=== PATIENT | female | born 1935 | race Caucasian/White ===

== ENCOUNTER → 2016-10-08 | Outpatient (CLI) | payer MEDICARE, BC ==
--- NOTE | 2016-10-09 13:40 | MR ---
EXAMINATION TYPE: MR brain and iac wo/w con DATE OF EXAM: 10/08/2016 COMPARISON: NONE HISTORY: rt trigeminal neuralgia, carla hearing loss, Pt has hx of 3 gamma knife procedures on prior tr igeminal neuralgia TECHNIQUE: Multiplanar, multisequence images of the brain and brainstem is performed without and with IV contras t, utilizing 9 mL intravenous MultiHance . FINDINGS: Diffusion weighted images demonstrate no evidence of a recent infarct or other diffusion ab normality. There is no extra-axial fluid collection. Periventricular white matter shows confluent h yperintensity on inversion recovery and T2-weighted sequences, there are scattered foci present addit ionally. Focal encephalomalacia present in the periventricular white matter on the left compatible wi th prior infarct. The ventricular system and cisternal spaces are normal in size and appearance. The brain volume is remarkable for cortical atrophy. Midline structures demonstrate normal morphology. The craniocervical junction appears within normal limits. Post contrast images demonstrate mild asymmetry, some increased enhancement along the region anterior to the internal carotid artery on the right as compared to the left on image #9 of the axia l postcontrast data set. Dural venous sinuses appear patent. The visualized sinuses are clear and the globes are intact. IMPRESSION: Mild asymmetry on postcontrast appearance as described, comparison with old films may be of benefit, this may represent a normal variant, correlate for appropriate history.
== END | disposition home or self-care (01) ==
LOC: RADMRIMAIN 07:57
PROVIDERS: ATTEND Neurological Surgery
DX: G50.0 Trigeminal neuralgia (principal)
CPT/HCPCS: 70553

== ENCOUNTER → 2017-10-21 | Outpatient (CLI) | payer MEDICARE, BC ==
[~2017-10-21] MED LIST: DENOSUMAB 60 MG/ML 1 ML SYRINGE SQ ONE
[2017-10-21 10:07] VITALS: BP 127/59; PULSE 75; RESP 14
== END | disposition home or self-care (01) ==
LOC: PROCWHC3 09:54
PROVIDERS: ATTEND Family Medicine
DX: M81.0 Age-related osteoporosis without current pathological fracture (principal)
CPT/HCPCS: 96372; J0897

== ENCOUNTER → 2018-05-01 | Outpatient (CLI) | payer MEDICARE, BC ==
[2018-05-01 10:16] VITALS: BP 152/69; PULSE 84; RESP 16; TEMP 97.6
== END | disposition home or self-care (01) ==
LOC: PROCWHC3 09:54
PROVIDERS: ATTEND Family Medicine
DX: M81.0 Age-related osteoporosis without current pathological fracture (principal)
CPT/HCPCS: 96372; J0897

== ENCOUNTER → 2018-10-30 | Outpatient (CLI) | payer MEDICARE, BC ==
[2018-10-30 10:20] VITALS: BP 137/65; PULSE 89; RESP 16; TEMP 97.5
== END | disposition home or self-care (01) ==
LOC: PROCWHC3 10:01
PROVIDERS: ATTEND Family Medicine
DX: M81.0 Age-related osteoporosis without current pathological fracture (principal)
CPT/HCPCS: 96372; J0897

== ENCOUNTER → 2019-05-06 | Outpatient (CLI) | payer MEDICARE, BC ==
[~2019-05-06] MED LIST changes: +DENOSUMAB 60 MG/ML 1 ML SYRINGE SQ NR; -DENOSUMAB 60 MG/ML 1 ML SYRINGE SQ ONE
[2019-05-06 10:59] VITALS: BP 138/72; PULSE 83; RESP 18; TEMP 97.8
== END | disposition home or self-care (01) ==
LOC: PROCWHC3 10:34
PROVIDERS: ATTEND Family Medicine
DX: M81.0 Age-related osteoporosis without current pathological fracture (principal)
CPT/HCPCS: 96372

== ENCOUNTER → 2020-01-04 | Outpatient (CLI) | payer MEDICARE, BC ==
[2020-01-04 13:56] VITALS: BP 150/85; PULSE 97; RESP 16; TEMP 97.5
== END | disposition home or self-care (01) ==
LOC: PROCWHC3 13:38
PROVIDERS: ATTEND Family Medicine
DX: M81.0 Age-related osteoporosis without current pathological fracture (principal)
CPT/HCPCS: 96372; J0897

== ENCOUNTER → 2020-08-08 | Outpatient (CLI) | payer MEDICARE, BC ==
[2020-08-08 11:31] VITALS: BP 177/79; PULSE 80; RESP 16; TEMP 98
== END | disposition home or self-care (01) ==
LOC: PROCWHC3 11:10
PROVIDERS: ATTEND Family Medicine
DX: M81.0 Age-related osteoporosis without current pathological fracture (principal)
CPT/HCPCS: 96372; J0897

== ENCOUNTER → 2021-01-30 | Outpatient (CLI) | payer MEDICARE, BC ==
[2021-01-30 12:13] VITALS: BP 180/84; PULSE 89; RESP 16; TEMP 97.7
== END | disposition home or self-care (01) ==
LOC: PROCWHC3 11:39
PROVIDERS: ATTEND Family Medicine
DX: M81.0 Age-related osteoporosis without current pathological fracture (principal)
CPT/HCPCS: 96372; J0897

== ENCOUNTER → 2021-08-01 | Outpatient (CLI) | payer MEDICARE, BC ==
[2021-08-01 12:50] VITALS: BP 167/84; PULSE 82; RESP 16; TEMP 98.5
== END | disposition home or self-care (01) ==
LOC: PROCWHC3 12:38
PROVIDERS: ATTEND Family Medicine
DX: M81.0 Age-related osteoporosis without current pathological fracture (principal)
CPT/HCPCS: 96372; J0897

== ENCOUNTER 2022-07-30 21:40 | Inpatient (IN) | payer MEDICARE, BC ==
[2022-07-31 00:58] LABS: Basophils % (A) 1 %; Eosinophils # (A) 0.2 k/uL (0-0.7); Eosinophils % (A) 2 %; HCT 40.4 % (34.0-46.0); Lymphocytes % (A) 13 %; MCH 31.9 pg (25.0-35.0); MCHC 32.3 g/dL (31.0-37.0); MCV 98.6 fL (80.0-100.0); Mean Platelet Volume 7.5; Monocytes # (A) 0.6 k/uL (0-1.0); Monocytes % (A) 8 %; Neutrophils # (A) 5.9 k/uL (1.3-7.7); Neutrophils % (A) 74 %; Platelet Count 463 k/uL (150-450); RBC 4.09 m/uL (3.80-5.40); RDW 13.1 % (11.5-15.5); WBC 7.9 k/uL (3.8-10.6)
[2022-07-31 01:07] LABS: Albumin 3.7 g/dL (3.5-5.0); Calcium 8.8 mg/dL (8.4-10.2); Potassium 4.3 mmol/L (3.5-5.1); Total Bilirubin 0.4 mg/dL (0.2-1.3); Total Protein 6.8 g/dL (6.3-8.2)
[2022-07-31 01:13] LABS: INR 0.9 (<1.2); Prothrombin Time 9.6 sec (9.0-12.0)
--- NOTE | 2022-07-31 02:34 | CT ---
EXAM: CT Head Without Intravenous Contrast CLINICAL HISTORY: ITS.REASON CT Reason: weakness TECHNIQUE: Axial computed tomography images of the head/brain without intravenous contrast. CTDI is 49.2 mGy and DLP is 1110.4 mGy-cm. This CT exam was performed using one or more of the following dose reduction techniques: automated exposure control, adjustment of the mA and/or kV according to patient size, and/or use of iterative reconstruction technique. COMPARISON: Represent with the prior MRI dated 10/08/2016 FINDINGS: Brain: Moderate ischemic microangiopathy. Chronic left basal ganglia lacunar infarct. Mild cerebral volume loss. No hemorrhage. Ventricles: Unremarkable. No ventriculomegaly. Bones/joints: Postoperative changes occipital craniotomy. No acute fracture. Soft tissues: Unremarkable. Sinuses: Unremarkable as visualized. No acute sinusitis. Mastoid air cells: Unremarkable as visualized. No mastoid effusion. IMPRESSION: No acute findings in the head/brain.
[2022-07-31] MEDS ORDERED: ASPIRIN 325 MG TAB PO STA (03:30)
--- NOTE | 2022-07-31 03:45 | ED ---
General Adult HPI - General Chief complaint: Weakness Stated complaint: Possible Stroke Time Seen by Provider: 07/31/22 01:31 Source: patient, family, RN notes reviewed, old records reviewed Mode of arrival: wheelchair Limitations: no limitations - History of Present Illness Initial comments: 87-year-old female presents for evaluation of weakness, fatigue. She's daughter also had noticed some mild slurred speech although patient does have a certain a mount of slurred speech at baseline. Patient denies any limb weakness or numbness. No headache. No chest pain or abdominal pain. No fever. Symptoms began at approximately 8 PM and are improved at the time my evaluation. - Related Data Home Medications Medication Instructions Recorded Confirmed Acetaminophen Tab [Tylenol Tab] 1,000 mg PO BID 10/21/17 04/30/22 Aspirin [Adult Low Dose Aspirin EC] 81 mg PO DAILY 10/21/17 04/30/22 Dicyclomine [Bentyl] 20 mg PO QID 10/21/17 04/30/22 Ergocalciferol (Vitamin D2) 50,000 units PO WEEKLY 10/21/17 04/30/22 [Vitamin D2] Levothyroxine Sodium [Tirosint] 50 mcg PO DAILY 10/21/17 04/30/22 Simvastatin [Zocor] 20 mg PO HS 10/21/17 04/30/22 buPROPion [Wellbutrin] 100 mg PO DAILY 10/21/17 04/30/22 clonazePAM [Clonazepam] 0.5 mg PO HS 10/21/17 04/30/22 Omeprazole 20 mg PO DAILY 10/30/18 04/30/22 Gabapentin 300 mg PO TID 08/01/21 04/30/22 Allergies Allergy/AdvReac Type Severity Reaction Status Date / Time oxcarbazepine Allergy Nausea & Verified 04/30/22 11:19 Vomiting Review of Systems ROS Statement: Those systems with pertinent positive or pertinent negative responses have been documented in the HPI. ROS Other: All systems not noted in ROS Statement are negative. Past Medical History Past Medical History: Cancer, COPD, CVA/TIA, GERD/Reflux, Hyperlipidemia, Osteoarthritis (OA), Skin Disorder, Thyroid Disorder Additional Past Medical History / Comment(s): SKIN CANCER IN EXTREMITIES. 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 IBS.OSTEOPOROSIS. History of Any Multi-Drug Resistant Organisms: None Reported Past Surgical History: Hernia Repair Additional Past Surgical History / Comment(s): nerve blockage in brain for cheek pain, carla carpel tunnel surgery. BILATERAL NEURALGIA NERVE BLOCK. Past Anesthesia/Blood Transfusion Reactions: No Reported Reaction Past Psychological History: No Psychological Hx Reported Smoking Status: Current every day smoker Past Alcohol Use History: None Reported Past Drug Use History: None Reported General Exam Limitations: no limitations General appearance: alert, in no apparent distress Head exam: Present: atraumatic, normocephalic Eye exam: Present: normal appearance, PERRL Neck exam: Present: normal inspection. Absent: tenderness, meningismus Respiratory exam: Present: normal lung sounds bilaterally. Absent: respiratory distress, wheezes Cardiovascular Exam: Present: regular rate, normal rhythm GI/Abdominal exam: Present: soft. Absent: distended, tenderness, guarding Extremities exam: Present: normal inspection, normal capillary refill Neurological exam: Present: alert, oriented X3, CN II-XII intact, motor sensory deficit (No focal neurological findings, NIH is 0) Psychiatric exam: Present: normal affect, normal mood Skin exam: Present: warm, dry, intact Course Vital Signs 07/30/22 07/31/22 07/31/22 21:44 01:33 03:00 Temperature 97.3 F L Pulse Rate 89 78 83 Respiratory 16 18 16 Rate Blood Pressure 173/73 189/103 173/82 O2 Sat by Pulse 95 97 95 Oximetry Medical Decision Making - Medical Decision Making Was pt. sent in by a medical professional or institution (, PA, VENDING MACHINE MECHANIC, urgent care, hospital, or residential...) When possible be specific @ -No Did you speak to anyone other than the patient for history (EMS, parent, family, police, friend...)? What history was obtained from this source @ -[Patient's daughter who is at bedside, reports recent admission for CVA. Patient on aspirin, Plavix, statin Did you review nursing and triage notes (agree or disagree)? Why? @ -I reviewed and agree with nursing and triage notes Were old charts reviewed (outside hosp., previous admission, EMS record, old EKG, old radiological studies, urgent care reports/EKG's, residential records)? Report findings @ -No old charts were reviewed Differential Diagnosis (chest pain, altered mental status, abdominal pain women, abdominal pain men, vaginal bleeding, weakness, fever, dyspnea, syncope, headache, dizziness, GI bleed, back pain, seizure, CVA, palpatations, mental health, musculoskeletal)? @ Differential Weakness: Hypoglycemia, shock, sepsis, hyponatremia, anemia, infection, AL, ETOH, adverse medicine reaction, overdose, stroke, this is not meant to be an all-inclusive list. EKG interpreted by me (3pts min.). @Sinus rhythm rate of 72, MI interval 153, QRS duration 86, no ST segment elevation. X-rays interpreted by me (1pt min.). @Showing hyperinflation without pneumothorax, no focal pneumonia CT interpreted by me (1pt min.). @Negative for intracranial hemorrhage or mass effect, no acute findings U/S interpreted by me (1pt. min.). @ -None done What testing was considered but not performed or refused? (CT, X-rays, U/S, labs)? Why? @ -None What meds were considered but not given or refused? Why? @ -None Did you discuss the management of the patient with other professionals (adiel hurd i.e. , PA, VENDING MACHINE MECHANIC, lab, RT, psych nurse, transition social worker, teaching pastor, teacher, medical officer, correctional case manager)? Give summary @ -EMH Was smoking cessation discussed for >3mins.? @ -No Was critical care preformed (if so, how long)? @ -No Were there social determinants of health that impacted care today? How? (Homelessness, low income, unemployed, alcoholism, drug addiction, transportat ion, low edu. Level, literacy, decrease access to med. care, correction, rehab)? @ -No Was there de-escalation of care discussed even if they declined (Discuss DNR or withdrawal of care, Hospice)? DNR status @ -No What co-morbidities impacted this encounter? (DM, HTN, Smoking, COPD, CAD, Cancer, CVA, ARF, Chemo, Hep., AIDS, mental health diagnosis, sleep apnea, morbid obesity)? @Hypertension, CVA Was patient admitted / discharged? Hospital course, mention meds given and route, prescriptions, significant lab abnormalities, going to OR and other pertinent info. @87-year-old female with weakness, fatigue, and mild dysarthria which is improved. Head CT is negative. Patient is currently under management for previous CVA with aspirin, Plavix, statin. Her laboratory testing is unremarkable, urinalysis is pending. There is a possibility of TIA and patient will be admitted for MRI. Patient and daughter are agreeable. Undiagnosed new problem with uncertain prognosis? @ -No Drug Therapy requiring intensive monitoring for toxicity (Heparin, Nitro, Insulin, Cardizem)? @ -No Were any procedures done? @ -No Diagnosis/symptom? @Weakness, TIA Acute, or Chronic, or Acute on Chronic? @Acute Uncomplicated (without systemic symptoms) or Complicated (systemic symptoms)? @Complicated Side effects of treatment? @ -No Exacerbation, Progression, or Severe Exacerbation? @ -No Poses a threat to life or bodily function? How? (Chest pain, USA, AL, pneumonia, PE, COPD, DKA, ARF, appy, cholecystitis, CVA, Diverticulitis, Homicidal, Suicidal, threat to staff... and all critical care pts) @Yes, CVA - Lab Data Result diagrams: 07/31/22 00:44 07/31/22 00:44 Lab Results 07/31/22 07/31/22 07/31/22 Range/Units 00:44 00:44 00:44 WBC 7.9 (3.8-10.6) k/uL RBC 4.09 (3.80-5.40) m/uL Hgb 13.0 (11.4-16.0) gm/dL Hct 40.4 (34.0-46.0) % MCV 98.6 (80.0-100.0) fL MCH 31.9 (25.0-35.0) pg MCHC 32.3 (31.0-37.0) g/dL RDW 13.1 (11.5-15.5) % Plt Count 463 H (150-450) k/uL MPV 7.5 Neutrophils % 74 % Lymphocytes % 13 % Monocytes % 8 % Eosinophils % 2 % Basophils % 1 % Neutrophils # 5.9 (1.3-7.7) k/uL Lymphocytes # 1.0 (1.0-4.8) k/uL Monocytes # 0.6 (0-1.0) k/uL Eosinophils # 0.2 (0-0.7) k/uL Basophils # 0.0 (0-0.2) k/uL PT 9.6 (9.0-12.0) sec INR 0.9 (<1.2) APTT 29.0 (22.0-30.0) sec Sodium 134 L (137-145) mmol/L Potassium 4.3 (3.5-5.1) mmol/L Chloride 97 L (98-107) mmol/L Carbon Dioxide 27 (22-30) mmol/L Anion Gap 10 mmol/L BUN 19 H (7-17) mg/dL Creatinine 1.14 H (0.52-1.04) mg/dL Est GFR (CKD-EPI)AfAm 51 (>60 ml/min/1.73 sqM) Est GFR (CKD-EPI)NonAf 44 (>60 ml/min/1.73 sqM) Glucose 87 (74-99) mg/dL Calcium 8.8 (8.4-10.2) mg/dL Total Bilirubin 0.4 (0.2-1.3) mg/dL AST 23 (14-36) U/L ALT 17 (4-34) U/L Alkaline Phosphatase 102 (38-126) U/L Troponin I (0.000-0.034) ng/mL Total Protein 6.8 (6.3-8.2) g/dL Albumin 3.7 (3.5-5.0) g/dL 07/31/22 Range/Units 00:44 WBC (3.8-10.6) k/uL RBC (3.80-5.40) m/uL Hgb (11.4-16.0) gm/dL Hct (34.0-46.0) % MCV (80.0-100.0) fL MCH (25.0-35.0) pg MCHC (31.0-37.0) g/dL RDW (11.5-15.5) % Plt Count (150-450) k/uL MPV Neutrophils % % Lymphocytes % % Monocytes % % Eosinophils % % Basophils % % Neutrophils # (1.3-7.7) k/uL Lymphocytes # (1.0-4.8) k/uL Monocytes # (0-1.0) k/uL Eosinophils # (0-0.7) k/uL Basophils # (0-0.2) k/uL PT (9.0-12.0) sec INR (<1.2) APTT (22.0-30.0) sec Sodium (137-145) mmol/L Potassium (3.5-5.1) mmol/L Chloride (98-107) mmol/L Carbon Dioxide (22-30) mmol/L Anion Gap mmol/L BUN (7-17) mg/dL Creatinine (0.52-1.04) mg/dL Est GFR (CKD-EPI)AfAm (>60 ml/min/1.73 sqM) Est GFR (CKD-EPI)NonAf (>60 ml/min/1.73 sqM) Glucose (74-99) mg/dL Calcium (8.4-10.2) mg/dL Total Bilirubin (0.2-1.3) mg/dL AST (14-36) U/L ALT (4-34) U/L Alkaline Phosphatase (38-126) U/L Troponin I <0.012 (0.000-0.034) ng/mL Total Protein (6.3-8.2) g/dL Albumin (3.5-5.0) g/dL Disposition Clinical Impression: TIA (transient ischemic attack), Weakness Disposition: ADMITTED IP TO THIS HOSP Condition: Stable Is patient prescribed a controlled substance at d/c from ED?: No Referrals: Alyssa Farrell MD [Primary Care Provider] - 1-2 days Time of Disposition: 04:26
[2022-07-31] MEDS: SODIUM CHLORIDE 0.9% 1,000 ML IV SCH ×2 (03:49→21:48)
--- NOTE | 2022-07-31 05:59 | XR ---
EXAM: XR Chest, 2 Views CLINICAL HISTORY: Weakness TECHNIQUE: Frontal and lateral views of the chest. COMPARISON: No relevant prior studies available. FINDINGS: Patient's bra was not removed, which limits evaluation. Lungs: Lingular atelectasis and/or infiltrates. Hyperexpansion of both lungs with flattening of the diaphragm bilaterally suggesting COPD. Pleural space: Trace bilateral pleural effusions likely present. No pneumothorax. Heart: Unremarkable. No cardiomegaly. Mediastinum: Unremarkable. Bones/joints: Osteopenia noted. IMPRESSION: 1. Lingular atelectasis and/or infiltrates. 2. Findings suggestive of COPD. 3. Trace bilateral pleural effusions likely present.
[2022-07-31] MEDS: ASPIRIN 81 MG PO SCH (09:20)
[2022-07-31] MEDS ORDERED: ACETAMINOPHEN TAB 500 MG TAB PO PRN (09:42)
[2022-07-31] MEDS: LEVOTHYROXINE 50 MCG TAB PO SCH (10:16)
--- NOTE | 2022-07-31 13:47 | P.CNNES ---
History of Present Illness Consult date: 07/11/22 Requesting physician: Sandro Hoskins Reason for Consult: TIA History of Present Illness: This is an 87-year-old woman with history of recent small stroke in beginning June 2022, also a remote stroke, trigeminal neuralgia status post 3 surgeries who presented emergency department because worsening of slurred speech and generalized weakness. Patient is accompanied with her daughter who helps with some of the history. According to the patient yesterday early in the afternoon yesterday she felt which was mopping the floor she was having generalized weakness. The daughter felt she was having worsening of the slurring the speech. She has slurring the speech at baseline but she felt slightly was worse. Otherwise no focal weakness or new numbness or difficulty swallowing or getting her words out. She feels back to baseline. According to the daughter she had a recent stroke and she was in [facility] in 06/11/2022 and she was told she has a mild stroke and she has some numbness but does not know the details. Patient is on aspirin 81 mg, Plavix 75 mg. She has a old numbness over the right side and drooling as a result of multiple surgery for trigeminal neuralgia. Some of the workup during his hospital visit consisted of: Creatinine is 1.14. Sodium is 134. Otherwise the rest of the Spells unremarkable CT of the head is reported as no acute finding in the head. Personally reviewed the CT and I felt that the patient had an old left stroke over basal ganglia near the putamen globus pallidus region. Review of Systems Review of system: The 12 point system was reviewed and apparent positive and negative per HPI. Past Medical History Past Medical History: Cancer, COPD, CVA/TIA, GERD/Reflux, Hyperlipidemia, Osteoarthritis (OA), Skin Disorder, Thyroid Disorder Additional Past Medical History / Comment(s): SKIN CANCER IN EXTREMITIES. 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 IBS.OSTEOPOROSIS. History of Any Multi-Drug Resistant Organisms: None Reported Past Surgical History: Hernia Repair Additional Past Surgical History / Comment(s): nerve blockage in brain for cheek pain, carla carpel tunnel surgery. BILATERAL NEURALGIA NERVE BLOCK. Past Anesthesia/Blood Transfusion Reactions: No Reported Reaction Past Psychological History: No Psychological Hx Reported Smoking Status: Current every day smoker Past Alcohol Use History: None Reported Past Drug Use History: None Reported Medications and Allergies Home Medications Medication Instructions Recorded Confirmed Type Acetaminophen Tab [Tylenol Tab] 1,000 mg PO Q6H PRN 10/21/17 07/31/22 History Aspirin [Adult Low Dose Aspirin EC] 81 mg PO DAILY 10/21/17 07/31/22 History Levothyroxine Sodium [Tirosint] 50 mcg PO DAILY 10/21/17 07/31/22 History Simvastatin [Zocor] 20 mg PO AC-SUPPER 10/21/17 07/31/22 History buPROPion [Wellbutrin] 100 mg PO DAILY 10/21/17 07/31/22 History Omeprazole 20 mg PO AC-SUPPER 10/30/18 07/31/22 History Gabapentin 300 mg PO TID 08/01/21 07/31/22 History Cholecalciferol (Vitamin D3) 75 mcg PO DAILY 07/31/22 07/31/22 History [Vitamin D3 (3000 Iu)] Clopidogrel [Plavix] 75 mg PO DAILY 07/31/22 07/31/22 History Fluticasone Propion/Salmeterol 1 puff INHALATION RT-BID 07/31/22 07/31/22 History [Wixela 250-50 Inhub] Vit C/E/Zn/Coppr/Lutein/Zeaxan 1 cap PO AC-BID 07/31/22 07/31/22 History [Preservision Areds 2 Softgel] Allergies Allergy/AdvReac Type Severity Reaction Status Date / Time oxcarbazepine AdvReac Nausea & Verified 07/31/22 07:45 Vomiting Physical Examination - Vital Signs Vital Signs: Vital Signs Temp Pulse Resp BP Pulse Ox 07/31/22 10:30 69 16 154/85 94 L 07/31/22 10:00 72 18 154/85 95 07/31/22 09:30 81 16 159/83 96 07/31/22 09:00 72 18 166/81 95 07/31/22 08:30 67 18 138/77 95 07/31/22 08:00 67 20 141/83 94 L 07/31/22 07:30 72 18 163/80 93 L 07/31/22 06:00 73 15 143/76 96 07/31/22 05:00 77 16 147/84 94 L 07/31/22 04:25 92 L 07/31/22 04:20 84 L 07/31/22 03:00 83 16 173/82 95 07/31/22 01:33 78 18 189/103 97 07/30/22 21:44 97.3 F L 89 16 173/73 95 Intake and Output 07/30/22 07/31/22 07/31/22 22:59 06:59 14:59 Other: Weight 48.081 kg GENERAL: The patient is lying in bed and is not in acute distress. CHEST: No edema in lowers.. LUNG: Not labored breathing. NEUROLOGICAL: Higher mental function: The patient is awake, alert, oriented to self and place. Could not tell me time (old issue). Patient is following simple commands. No aphasia and no neglect. Cranial nerves: The pupils are round, equal and reactive to light. Visual medina are full to confrontation throughout. Extraocular movement is intact no nystagmus is noted. Facial sensation is decrease to touch over the entire right side (old). The facial strength is normal throughout. Hearing is mildly to moderately decreased bilaterally to hand rub. Tongue is midline and moved [id number] without any difficulty. No dysarthria is noted but has some hypophonia. Shoulder shrug is normal bilaterally. Motor: The strength is 5 over 5 throughout. Normal tone and bulk. Cerebellum: Normal finger to nose bilaterally. Sensation: Sensation is normal to touch throughout. Reflexes (right/left): 1+ throughout. Plantars are mute bilaterally. Results - Laboratory Findings CBC and BMP: 07/31/22 00:44 07/31/22 00:44 Abnormal Lab Findings: Abnormal Labs 07/31/22 07/31/22 00:44 00:44 Plt Count 463 H Sodium 134 L Chloride 97 L BUN 19 H Creatinine 1.14 H Assessment and Plan Assessment: Slight worsening of dysarthria that has resolved: Probable TIA Recent stroke in 06/11/2022 and she was told she had a mild stroke over at [facility] History of for remote stroke History of trigeminal neuralgia status post 3 surgeries History of numbness over the right face with some drooling due to surgery from the Trigemenial Neuralgia Plan: MRI of the brain without, lipid panel is ordered and is pending I ordered carotid duplex, 2-D echo for stroke. Ordered TSH, vitamin B12, folate for her complaint of generalized weakness. I started the patient on Brilinta 90mg 1 tab bid and will not start Plavix since failed medication. He is continuing on her home dose of aspirin 81 mg daily. Patient is on Lipitor 10 mg I increased it to 20 mg daily at bedtime for sagittal prophylaxis Continue neuro checks Start the patient on cardiac monitoring PT OT and ENGINE BUILDUP MECHANIC are consulted We'll defer the rest of the medical management to primary team For DVT prophylaxis she is on subcu heparin 5000 units every 12 hours. Plan discussed with the patient and her daughter was at bedside. Thank you consultation Time with Patient: Greater than 30
[2022-07-31 14:01] VITALS: BMI 18.8
[2022-07-31 15:39] LABS: T4, Free (Free Thyroxine) 2.15 ng/dL (0.78-2.19)
--- NOTE | 2022-07-31 16:03 | US ---
EXAMINATION TYPE: US carotid duplex BILAT DATE OF EXAM: 07/31/2022 COMPARISON: NONE CLINICAL INDICATION: Female, 87 years old with history of stroke; fall, no h/o stroke TECHNIQUE: Carotid duplex ultrasound examination. Indirect Doppler criteria was utilized. FINDINGS: EXAM MEASUREMENTS: RIGHT: Peak Systolic Velocity (PSV) cm/sec ----- Right CCA: 47.2 ----- Right ICA: 70.2 ----- Right ECA: 139 ICA/CCA ratio: 1.5 RIGHT: End Diastole cm/sec ----- Right CCA: 6.6 ----- Right ICA: 12.1 ----- Right ECA: 10.6 LEFT: Peak Systolic Velocity (PSV) cm/sec ----- Left CCA: 57.0 ----- Left ICA: 78.7 ----- Left ECA: 84.1 ICA/CCA ratio: 1.4 LEFT: End Diastole cm/sec ----- Left CCA: 8.9 ----- Left ICA: 13.7 ----- Left ECA: 4.7 VERTEBRALS (direction of flow): Right Vertebral: Antegrade Left Vertebral: Antegrade Rhythm: Normal HAT BLOCKER NOTES: Bilateral plaque with no significant stenosis Grayscale images show mild to moderate eccentric plaque bilateral carotid bulb level. Velocity measur ements however remain within normal limits. IMPRESSION: No hemodynamically significant stenosis in either internal carotid artery. Criteria for Assigning % of Stenosis / Diameter reduction (Estimation based on the indirect measurements of the internal carotid artery velocities (ICA PSV). 1. Normal (no stenosis)=ICA PSV < 125 cm/s: ratio < 2.0: ICA EDV<40 cm/s. 2. Less than 50% stenosis=ICA PSV < 125 cm/s: ratio < 2.0: ICA EDV<40 cm/s. 3. 50 to 69% stenosis=ICA PSV of 125 to 230 cm/s: ration 2.0 ? 4.0: ICA EDV 40-100 cm/s. 4. Greater than 70% stenosis to near occlusion= ICA PSV > 230 cm/s: ratio > 4.0: ICA EDV > 100 cm/s. 5. Near occlusion= ICA PSV velocities may be low or undetectable: variable ratio and ICA EDV. 6. Total occlusion=unable to detect flow.
[2022-07-31] MEDS: GABAPENTIN 300 MG CAP PO SCH ×2 (16:31→21:46)
[2022-07-31] MEDS ORDERED: PANTOPRAZOLE 40 MG TABLET PO SCH (17:30)
[2022-07-31] MEDS: SYMBICORT 80-4.5 MCG INHALER INHALATION SCH (20:56)
[2022-07-31 20:58] LABS: Appearance,Urine Clear (Clear); Bilirubin,Urine Negative (Negative); Blood,Urine Negative (Negative); Color,Urine Light Yellow; Glucose,Urine (UA) Negative (Negative); Ketones,Urine Trace (Negative); Leukocyte Esterase,Urine Negative (Negative); Nitrite,Urine Negative (Negative); Protein,Urine Negative (Negative); Specific Gravity,Urine 1.009 (1.001-1.035); Urobilinogen,Urine <2.0 mg/dL (<2.0)
[2022-07-31] MEDS ORDERED: ATORVASTATIN 10 MG TAB PO SCH (21:00)
[2022-07-31] MEDS ORDERED: ATORVASTATIN 20 MG TAB PO SCH (21:00)
[2022-07-31] MEDS: TICAGRELOR 90 MG TAB PO SCH (21:46)
[2022-07-31] MEDS: HEPARIN SODIUM,PORCINE/PF 5,000 UNIT/0.5 ML SYRINGE SQ SCH (21:46)
[2022-08-01] MEDS: LEVOTHYROXINE 50 MCG TAB PO SCH (06:31)
[2022-08-01] MEDS: SYMBICORT 80-4.5 MCG INHALER INHALATION SCH (07:37)
[2022-08-01 07:40] LABS: Basophils % (A) 0 %; Eosinophils # (A) 0.1 k/uL (0-0.7); Eosinophils % (A) 2 %; HCT 37.5 % (34.0-46.0); HGB 12.4 gm/dL (11.4-16.0); Lymphocytes # (A) 0.7 k/uL (1.0-4.8); Lymphocytes % (A) 13 %; MCH 33.3 pg (25.0-35.0); MCHC 33.1 g/dL (31.0-37.0); MCV 100.8 fL (80.0-100.0); Mean Platelet Volume 7.5; Monocytes # (A) 0.5 k/uL (0-1.0); Monocytes % (A) 9 %; Neutrophils % (A) 72 %; Platelet Count 438 k/uL (150-450); RBC 3.72 m/uL (3.80-5.40); RDW 12.7 % (11.5-15.5); WBC 5.6 k/uL (3.8-10.6)
[2022-08-01 08:00] LABS: African American GFR (CKD) 64 (>60 ml/min/1.73 sqM); Anion Gap 7 mmol/L; Blood Urea Nitrogen 13 mg/dL (7-17); Calcium 8.3 mg/dL (8.4-10.2); Carbon Dioxide 26 mmol/L (22-30); Chloride 100 mmol/L (98-107); Glucose 86 mg/dL (74-99); Non-African American GFR(CKD) 56 (>60 ml/min/1.73 sqM); Potassium 4.2 mmol/L (3.5-5.1); Sodium 133 mmol/L (137-145)
[2022-08-01] MEDS ORDERED: buPROPion 100 MG TAB PO SCH (09:00)
[2022-08-01] MEDS: TICAGRELOR 90 MG TAB PO SCH (09:52)
[2022-08-01] MEDS: GABAPENTIN 300 MG CAP PO SCH (09:53)
[2022-08-01] MEDS: ASPIRIN 81 MG PO SCH (09:53)
[2022-08-01] MEDS: SODIUM CHLORIDE 0.9% 1,000 ML IV SCH (09:53)
[2022-08-01] MEDS ORDERED: CYANOCOBALAMIN 1,000 MCG/ML 1 ML VIAL IM ONE (10:02)
[2022-08-01 10:09] VITALS: RESP 18; TEMP 97.3
--- NOTE | 2022-08-01 10:10 | P.HPIM ---
History of Present Illness H&P Date: 07/31/22 Chief Complaint: Weakness Patient is a 87-year-old female with a known history of CVA/TIA and residual weakness, hyperlipidemia, GERD, COPD, osteoarthritis, hypothyroidism and currently every day smoker was brought to the hospital due to complex of generalized weakness and fatigue. Patient was also having slurred speech which has worsened compared to his baseline. Symptoms started around 8 PM last night. Otherwise denied any numbness or tingling sensation in the legs. No complains of headache. No chest pain or shortness breath. No nausea vomiting abdominal pain. Denied any recent illnesses. CT head showed no acute findings in the head or brain. Chronic left basal ganglia lacunar infarct. Postoperative changes occipital craniotomy. EKG showed sinus rhythm. Chest x-ray showed lingular atelectasis/infiltrates. Findings suggestive of COPD. Trace bilateral pleural effusions likely present. Laboratory data WBC 7.9 hemoglobin 13.0 and platelets 463, sodium 134 potassium 4.3 chloride 97 bicarb is 27 BUN 19 and creatinine 1.14 Review of Systems Constitutional: Patient denies any fever or chills . Patient does have generalized weakness and fatigue.. Abdomen: Patient denied nausea vomiting and diarrhea and abdominal pain. Cardiovascular: Patient denies any chest pain or short of breath no palpitations. Respiratory: patient denied any cough is from production. No shortness of breath Neurologic: Patient denied any numbness or tingling headache. Slurred speech Musculoskeletal: Patient denies any complaints of joint swelling or deformity. Skin: Negative Psychiatric: Negative Endocrine: No heat or cold intolerance. No recent weight gain. Genitourinary: No dysuria or hematuria. All other 14 point ROS negative except the above Past Medical History Past Medical History: Cancer, COPD, CVA/TIA, GERD/Reflux, Hyperlipidemia, Osteoarthritis (OA), Skin Disorder, Thyroid Disorder Additional Past Medical History / Comment(s): SKIN CANCER IN EXTREMITIES. 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 IBS.OSTEOPOROSIS. History of Any Multi-Drug Resistant Organisms: None Reported Past Surgical History: Hernia Repair Additional Past Surgical History / Comment(s): nerve blockage in brain for cheek pain, carla carpel tunnel surgery. BILATERAL NEURALGIA NERVE BLOCK. Past Anesthesia/Blood Transfusion Reactions: No Reported Reaction Past Psychological History: No Psychological Hx Reported Smoking Status: Current every day smoker Past Alcohol Use History: None Reported Past Drug Use History: None Reported - Past Family History Sister(s) Family Medical History: Rheumatoid Arthritis (RA) Medications and Allergies Home Medications Medication Instructions Recorded Confirmed Type Acetaminophen Tab [Tylenol Tab] 1,000 mg PO Q6H PRN 10/21/17 07/31/22 History Aspirin [Adult Low Dose Aspirin EC] 81 mg PO DAILY 10/21/17 07/31/22 History Levothyroxine Sodium [Tirosint] 50 mcg PO DAILY 10/21/17 07/31/22 History Simvastatin [Zocor] 20 mg PO AC-SUPPER 10/21/17 07/31/22 History buPROPion [Wellbutrin] 100 mg PO DAILY 10/21/17 07/31/22 History Omeprazole 20 mg PO AC-SUPPER 10/30/18 07/31/22 History Gabapentin 300 mg PO TID 08/01/21 07/31/22 History Cholecalciferol (Vitamin D3) 75 mcg PO DAILY 07/31/22 07/31/22 History [Vitamin D3 (3000 Iu)] Clopidogrel [Plavix] 75 mg PO DAILY 07/31/22 07/31/22 History Fluticasone Propion/Salmeterol 1 puff INHALATION RT-BID 07/31/22 07/31/22 History [Wixela 250-50 Inhub] Vit C/E/Zn/Coppr/Lutein/Zeaxan 1 cap PO AC-BID 07/31/22 07/31/22 History [Preservision Areds 2 Softgel] Allergies Allergy/AdvReac Type Severity Reaction Status Date / Time oxcarbazepine AdvReac Nausea & Verified 07/31/22 07:45 Vomiting Physical Exam Vitals: Vital Signs Temp Pulse Resp BP Pulse Ox 07/31/22 06:00 73 15 143/76 96 07/31/22 05:00 77 16 147/84 94 L 07/31/22 04:25 92 L 07/31/22 04:20 84 L 07/31/22 03:00 83 16 173/82 95 07/31/22 01:33 78 18 189/103 97 07/30/22 21:44 97.3 F L 89 16 173/73 95 Intake and Output 07/30/22 07/31/22 07/31/22 22:59 06:59 14:59 Other: Weight 48.081 kg PHYSICAL EXAMINATION: Patient is lying in the bed comfortably, no acute distress, awake alert and oriented.. HEENT: Normocephalic. Neck is supple. Pupils reactive. Nostrils clear. Oral cavity is moist. Neck reveals no JVD, carotid bruits, or thyromegaly. CHEST EXAMINATION: Trachea is central. Symmetrical expansion. Lung medina clear to auscultation and percussion. CARDIAC: Normal S1, S2 with no gallops. No murmurs ABDOMEN: Soft. Bowel sounds normal. No organomegaly. No abdominal bruits. Extremities: reveal no edema. No clubbing or cyanosis Neurologically awake, alert, oriented 2 . Motor 5 out of 5 status. Skin: No rash or skin lesions. Psychiatric: Coperative. Nonsuicidal Musculoskeletal: No joint swelling or deformity. Normal range of motion. Results CBC & Chem 7: 08/01/22 07:00 08/01/22 07:00 Labs: Abnormal Lab Results - Last 24 Hours (Table) 07/31/22 07/31/22 Range/Units 00:44 00:44 Plt Count 463 H (150-450) k/uL Sodium 134 L (137-145) mmol/L Chloride 97 L (98-107) mmol/L BUN 19 H (7-17) mg/dL Creatinine 1.14 H (0.52-1.04) mg/dL Thrombosis Risk Factor Assmnt - DVT/VTE Prophylaxis DVT/VTE Prophylaxis: Pharmacologic Prophylaxis ordered Assessment and Plan Assessment: Worsening of slurred speech on admission. Resolved now. Possible TIA Generalized weakness Acute kidney injury likely dehydration and volume depletion. History of CVA in June 2022 with mild dysarthria. History of trigeminal neuralgia status post surgeries Hyperlipidemia Osteoarthritis Hypothyroidism History of skin cancer COPD Currently every day smoker DVT prophylaxis with heparin subcu Plan: Patient will be continued on telemetry monitoring. Continue with aspirin. Plavix is on hold and was started on bRILINTA. Continue with neuro checks and fall precautions. TSH, B12 folate and A1c levels ordered. Patient was seen by neurology and recommended MRI of the brain and carotid dupl ex was ordered. Continue to follow closely. Discussed with the family at bedside in detail.. Time with Patient: Greater than 30
--- NOTE | 2022-08-01 11:29 | MR ---
EXAMINATION TYPE: MR brain wo con DATE OF EXAM: 08/01/2022 COMPARISON: CT brain from yesterday HISTORY: Neuro deficit, acute, stroke suspected slurred speech. TECHNIQUE: Multiplanar, multisequence imaging of the brain and brainstem is performed without IV cont rast. FINDINGS: Diffusion weighted images demonstrate no evidence of a recent infarct or other diffusion abnormality. There is mild to moderate ventricular and sulcal prominence. There are focal and confluent areas of T 2 hyperintensity in the white matter bilaterally greatest and the periventricular levels. There is ol d infarct left coronal radiata redemonstrated axial image 20. There is old lacunar infarct right los axial image 11 redemonstrated. Midline structures demonstrate normal morphology. The craniocervical junction appears within normal limits. Normal vascular flow voids are present. The visualized sinuses are clear and the globes are i ntact. IMPRESSION: 1. No MRI evidence for recent infarct. 2. There is [id number] diffuse cerebral atrophy and moderate to advanced chronic small vessel i schemic change along with old left muniz radiata infarct and right-sided pontine lacunar infarct all noted.
--- NOTE | 2022-08-01 13:13 | P.PN ---
Subjective Progress Note Date: 08/01/22 The patient is seen in his company with her daughter. Patient feels she is doing drastically better and she feels back to baseline. The daughter agrees that she is back to baseline and she has no further slurring the speech. Objective - Vital Signs Vital signs: Vital Signs Temp 97.3 F L 08/01/22 08:00 Pulse 66 08/01/22 08:00 Resp 18 08/01/22 08:00 BP 168/71 08/01/22 08:00 Pulse Ox 93 L 08/01/22 08:00 FiO2 Intake & Output 07/31/22 08/01/22 08/01/22 18:59 06:59 18:59 Intake Total 75 240 Balance 75 240 Weight 48.081 kg Intake: IV 75 Sodium Chloride 0.9% 1, 75 000 ml @ 75 mls/hr IV . [id number] [facility] Rx#:[id number] Oral 240 Other: Voiding Method Toilet Toilet # Voids 1 # Bowel Movements 1 - Exam GENERAL: The patient is lying in bed and is not in acute distress. NEUROLOGICAL: Higher mental function: The patient is awake, alert, oriented to self, place and time. Patient is following simple commands. No aphasia and no neglect. Cranial nerves: The pupils are round, equal and reactive to light. Visual medina are full to confrontation throughout. Extraocular movement is intact no nystagmus is noted. Facial sensation is decrease to touch over the entire right side (old). The facial strength is normal throughout. Hearing is mildly to moderately decreased bilaterally to hand rub. Tongue is midline and moved [id number] without any difficulty. Subtle dysarthria with some hypophonia (old). Shoulder shrug is normal bilaterally. Motor: The strength is 5 over 5 throughout. Normal tone and bulk. Cerebellum: Normal finger to nose bilaterally. Sensation: Sensation is normal to touch throughout. Reflexes (right/left): 1+ throughout. Plantars are mute bilaterally. Some of the workup during his hospital visit consisted of: Creatinine is 1.14. Sodium is 134. B12 is 158 which is deficient Folate is 8.60 TSH is 0.406 but the free T4 is 2.15 CT of the head is reported as no acute finding in the head. Personally reviewed the CT and I felt that the patient had an old left stroke over basal ganglia near the putamen globus pallidus region. Carotid duplex is reported as no hemodynamic significant stenosis in either internal carotid artery. MRI the brain is reported as no MRI evidence for recent infarct. There is mild to moderate diffuse cerebral atrophy and moderate to advanced chronic small vessel ischemic change along with old left muniz radiata infarct and right- sided pontine lacunar infarct all noted. I personally reviewed that MRI and agr ee with the report. - Labs CBC & Chem 7: 08/01/22 07:00 08/01/22 07:00 Labs: Abnormal Lab Results - Last 24 Hours (Table) 07/31/22 07/31/22 08/01/22 Range/Units 01:00 19:52 07:00 RBC (3.80-5.40) m/uL MCV (80.0-100.0) fL Lymphocytes # (1.0-4.8) k/uL Sodium 133 L (137-145) mmol/L Calcium 8.3 L (8.4-10.2) mg/dL Vitamin B12 158.0 L (200.0-944.0) pg/mL TSH 0.406 L (0.465-4.680) mIU/L Urine Ketones Trace H (Negative) 08/01/22 Range/Units 07:00 RBC 3.72 L (3.80-5.40) m/uL MCV 100.8 H (80.0-100.0) fL Lymphocytes # 0.7 L (1.0-4.8) k/uL Sodium (137-145) mmol/L Calcium (8.4-10.2) mg/dL Vitamin B12 (200.0-944.0) pg/mL TSH (0.465-4.680) mIU/L Urine Ketones (Negative) Assessment and Plan Assessment: Slight worsening of dysarthria that has resolved with generalized weakness. Probable due to vitamin B12 deficiency. Cannot exclude the TIA Vitamin B12 deficiency and the level is 158 Recent stroke in 06/11/2022 and she was told she had a mild stroke over at [facility] History of for remote stroke History of trigeminal neuralgia status post 3 surgeries History of numbness over the right face with some drooling due to surgery from the Trigemenial Neuralgia Plan: Regarding the vitamin B12 deficiency she was given 1000 g IM once then by mouth after that by the primary team I started the patient on Brilinta 90mg 1 tab bid and will not start home Plavix because of concerns of possible TIA. Shee is continuing on her home dose of a spirin 81 mg daily. On Lipitor 20mg daily. PT OT and EPIC DIRECTOR are consulted Pending lipid panel and 2-D echo Continue neuro checks On cardiac monitoring We'll defer the rest of the medical management to primary team For DVT prophylaxis she is on subcu heparin 5000 units every 12 hours. Plan discussed with the patient and her daughter was at bedside. Besides above no and any additional workup is negative is clear from a neurologic perspective. Recommend the patient follow up with a neurologist as an outpatient within 1-2 weeks Time with Patient: Less than 30
[2022-08-01 13:16] VITALS: BP 149/71; PULSE 70
[2022-08-01] MEDS: HEPARIN SODIUM,PORCINE/PF 5,000 UNIT/0.5 ML SYRINGE SQ SCH (13:31)
[2022-08-01 15:43] LABS: Chol/HDL Ratio 2.89 Ratio; LDL Cholesterol,Calculated 78.8 mg/dL (0.0-131.0)
--- NOTE | 2022-08-01 18:54 | CA ---
Transthoracic Echo Report Name: Gardenia Mcginnis Age: 87 Gender: F : 1935 Exam Date: 08/01/2022 08:41 Exam Location: [facility] Ht (in): 63 Wt (lb): 106 Ordering Physician: German Baumann MD Attending/Referring Phys: Associate Rip Catalan Procedure CPT: Indications: stroke Cardiac Hx: Technical Quality: Fair Contrast 1: Total Dose (mL): Contrast 2: Total Dose (mL): MEASUREMENTS (Male / Female) Normal Values 2D ECHO LV Diastolic Diameter PLAX 2.9 cm 4.2 - 5.9 / 3.9 - 5.3 cm LV Systolic Diameter PLAX 1.9 cm IVS Diastolic Thickness 1.2 cm 0.6 - 1.0 / 0.6 - 0.9 cm LVPW Diastolic Thickness 1.0 cm 0.6 - 1.0 / 0.6 - 0.9 cm LV Relative Wall Thickness 0.8 RV Internal Dim ED PLAX 1.4 cm LVOT Diameter 2.0 cm Aortic Root Diameter 2.9 cm LA Systolic Diameter LX 2.8 cm 3.0 - 4.0 / 2.7 - 3.8 cm LV Diastolic Volume MOD BP 31.3 cm??? 67 - 155 / 56 - 104 cm??? LV Systolic Volume MOD BP 8.0 cm??? 22 - 58 / 19 - 49 cm??? LV Ejection Fraction MOD BP 74.4 % >= 55 % LV Diastolic Volume MOD 4C 28.2 cm??? LV Systolic Volume MOD 4C 6.4 cm??? LV Ejection Fraction MOD 4C 77.5 % LV Diastolic Length 4C 5.8 cm LV Systolic Length 4C 5.3 cm LV Diastolic Volume MOD 2C 31.7 cm??? LV Systolic Volume MOD 2C 9.7 cm??? LV Ejection Fraction MOD 2C 69.4 % LV Diastolic Length 2C 6.4 cm LV Systolic Length 2C 5.8 cm LA Volume 37.0 cm??? 18 - 58 / 22 - 52 cm??? DOPPLER AV Peak Velocity 137.7 cm/s AV Peak Gradient 7.6 mmHg Mitral E Point Velocity 98.2 cm/s Mitral A Point Velocity 130.6 cm/s Mitral E to A Ratio 0.8 MV Deceleration Time 303.5 ms TR Peak Velocity 259.8 cm/s TR Peak Gradient 27.0 mmHg Right Ventricular Systolic Press 32.1 mmHg PV Peak Velocity 115.4 cm/s PV Peak Gradient 5.3 mmHg FINDINGS Left Ventricle Left ventricular ejection fraction is estimated at 60-65 %. Mild Conc. LVH. Right Ventricle Normal right ventricular size and function. Right Atrium Normal right atrial size. Left Atrium Normal left atrial size. Mitral Valve Grossly normal. No MR. Aortic Valve Not well visualized. Grossly no evidence of stenosis or regurgitation. Tricuspid Valve Structurally normal tricuspid valve. Mild TR. RVSP= 28mmhg Pulmonic Valve Pulmonic valve not well visualized. No pulmonic regurgitation. Pericardium Normal pericardium. Aorta Normal size aortic root and proximal ascending aorta. CONCLUSIONS LVH with preserved systolic function Previewed by: Dr. Vel Gilliam MD (Electronically Signed) Final Date: 01 Aug 2022 18:53
[2022-08-02] MEDS ORDERED: CYANOCOBALAMIN 500 MCG TAB PO SCH (09:00)
== END 2022-08-01 16:20 | disposition home or self-care (01) | DRG 641 ==
LOC: EC 21:40 → 3SCARD 07-31 04:21
PROVIDERS: ADMIT Internal Medicine; ATTEND Internal Medicine
DX: E53.8 Deficiency of other specified B group vitamins (principal); G45.9 Transient cerebral ischemic attack, unspecified; J98.11 Atelectasis; N17.9 Acute kidney failure, unspecified; E03.9 Hypothyroidism, unspecified; E78.5 Hyperlipidemia, unspecified; F17.210 Nicotine dependence, cigarettes, uncomplicated; G50.0 Trigeminal neuralgia; E86.9 Volume depletion, unspecified; E86.0 Dehydration; R47.1 Dysarthria and anarthria; K21.9 Gastro-esophageal reflux disease without esophagitis; K58.9 Irritable bowel syndrome, unspecified; M81.0 Age-related osteoporosis without current pathological fracture; M19.90 Unspecified osteoarthritis, unspecified site; Z79.02 Long term (current) use of antithrombotics/antiplatelets; Z79.82 Long term (current) use of aspirin; Z79.890 Hormone replacement therapy; Z79.899 Other long term (current) drug therapy; Z85.828 Personal history of other malignant neoplasm of skin; Z86.73 Personal history of transient ischemic attack (TIA), and cerebral infarction without residual deficits
CPT/HCPCS: 36415; 70450; 70551; 71046; 80048; 80053; 80061; 81003; 82607; 82746; 84439; 84443; 84484; 85025; 85610; 85730; 93005; 93306; 93880; 94640; 94760; 96360; 96361; 99285

== ENCOUNTER → 2022-12-19 | Outpatient (CLI) | payer MEDICARE, BC ==
[2022-12-19 13:46] VITALS: BP 157/86; PULSE 80; RESP 16; TEMP 98.1
== END ==
LOC: PROCWHC3 13:09
PROVIDERS: ATTEND Family Medicine
DX: M81.0 Age-related osteoporosis without current pathological fracture (principal)
CPT/HCPCS: 96372; J0897

== ENCOUNTER → 2023-07-30 | Outpatient (CLI) | payer MEDICARE, BC ==
[2023-07-30] MEDS: DENOSUMAB 60 MG/ML 1 ML SYRINGE SQ ONE (13:50)
[2023-07-30 14:36] VITALS: BP 161/75; PULSE 80; RESP 16; TEMP 97.4
== END ==
LOC: PROCWHC3 13:34
PROVIDERS: ATTEND Family Medicine
DX: M81.0 Age-related osteoporosis without current pathological fracture (principal)
CPT/HCPCS: 96372; J0897

== ENCOUNTER → 2024-03-08 | Outpatient (CLI) | payer MEDICARE, BC ==
[2024-03-08] MEDS: DENOSUMAB 60 MG/ML 1 ML SYRINGE SQ NR (14:08)
[2024-03-08 14:09] VITALS: BP 158/77; PULSE 83; RESP 16; TEMP 98
== END ==
LOC: PROCWHC3 13:46
PROVIDERS: ATTEND Family Medicine
DX: M81.0 Age-related osteoporosis without current pathological fracture (principal)
CPT/HCPCS: 96372; J0897

== ENCOUNTER → 2024-09-23 | Outpatient (CLI) | payer MEDICARE, BC ==
[2024-09-23] MEDS: DENOSUMAB 60 MG/ML 1 ML SYRINGE SQ ONE (13:10)
[2024-09-23 13:21] VITALS: BP 166/75; PULSE 90; RESP 16; TEMP 98
== END ==
LOC: PROCWHC3 13:04
PROVIDERS: ATTEND Family Medicine
DX: M81.0 Age-related osteoporosis without current pathological fracture (principal)
CPT/HCPCS: 96372; J0897